=== PATIENT | female | born 1985 | race Caucasian/White ===

== ENCOUNTER 2020-10-07 09:18 | Emergency (ER) | payer OTHER ==
[~2020-10-07 09:18] MED LIST: LISINOPRIL-HCT1 EAC1 PO; METFORMIN HCL500 M3 PO; PERCOCET 5-3251 EACH PO; STEGLATRO15 MG PO; ZOLOFT50 MG PO
[2020-10-07 10:11] LABS: BASOPHIL 0.4 % (0-2); EOSINOPHIL 3.1 % (0-5); HCT 42.8 % (37.0-47.0); HGB 13.5 g/dl (12.5-16.0); LYMPHOCYTE 26.2 % (15-48); MCH 26.2 pg (25.0-31.0); MCHC 31.5 g/dL (32.0-36.0); MCV 83.1 fL (78.0-100.0); MONOCYTE 4.2 % (0-12); MPV 11.6 fL (6.0-9.5); NEUTROPHIL 65.5 % (41-80); NRBC 0; PLT 261 K/uL (150-400); RBC 5.15 M/uL (4.20-5.40); RDW 15.1 % (11.5-14.0); WBC 12.1 K/uL (4.0-10.5)
[2020-10-07 10:27] LABS: ALBUMIN 3.4 g/dL (3.4-5.0); BUN/CREAT RATIO (CALC) 17.7 RATIO; CREATININE 0.62 mg/dL (0.51-0.95); GLOBULIN (CALCULATION) 3.9 g/dL; POTASSIUM 3.9 mmol/L (3.5-5.1); TOTAL PROTEIN 7.3 g/dL (6.4-8.2)
[2020-10-07 12:05] LABS: INR 1.04 (0.9-1.2); PROTHROMBIN TIME 12.8 SECONDS (11.4-13.6); PTT 27.2 SECONDS (22.2-34.7)
== END 2020-10-07 15:24 | disposition home or self-care (01) ==
LOC: FER 09:18
PROVIDERS: Emergency Medicine
DX: R07.89 Other chest pain (principal); E10.9 Type 1 diabetes mellitus without complications; I10 Essential (primary) hypertension; Z98.51 Tubal ligation status; Z98.890 Other specified postprocedural states; Z79.84 Long term (current) use of oral hypoglycemic drugs; Z79.899 Other long term (current) drug therapy
CPT/HCPCS: 36415; 71045; 80053; 84484; 85025; 85610; 85730; 93005